=== PATIENT | female | born 1965 | race Two or more races ===

== ENCOUNTER → 2017-06-27 | Outpatient (CLI) | payer MEDICARE, MEDICAID ==
--- NOTE | 2017-06-27 14:17 | Diagnostic Imaging Report ---
Indication: Dyspnea Comparison: None 2 views of the chest obtained. Findings: Cardiomediastinal silhouette and pulmonary vascularity are within normal limits for age. The diaphragmatic contour is smooth and costophrenic angles are sharp. No pleural effusions are identified. The bones are unremarkable. Cervical fusion hardware noted. Impression: No acute disease
== END | disposition home or self-care (01) ==
LOC: RAD 13:13
DX: R05 Cough (principal)
CPT/HCPCS: 71020

== ENCOUNTER 2017-08-08 06:15 | Emergency (ER) | payer MEDICARE, MEDICAID ==
[~2017-08-08] VITALS: Ht 162.6 cm; Wt 98.4 kg
[2017-08-08] MEDS ORDERED: HYDROmorphone 1mg/ml Carpuject IVP ONE ×3 (07:15→11:00)
[2017-08-08] MEDS ORDERED: Ketorolac 30mg Inj IV ONE (07:15)
[2017-08-08] MEDS ORDERED: Tubing IV Cassette IV ONE ×2 (07:18→08:05)
--- NOTE | 2017-08-08 07:29 | Emergency Room Report ---
History of Present Illness General Chief Complaint: Headache Source: Patient Present Illness HPI This patient has a recent complications related to his spinal fusion. The patient underwent a lumbar spine fusion at [facility] in early July. She had postoperative complications to include a surgical site infection. She had to undergo revision of the surgical site and since that time has developed a spinal fluid leak at the level of the surgical site. She did get seen again at [facility] 4 days ago for these symptoms. She was diagnosed with a spinal fluid leak. There was attempt to do a patch with a blood patch. However this failed. She then underwent attempt at relief with a type of "spinal glue." She states that this did work for about one day. She states at about 2 AM this morning she woke up with a severe headache. She states the headache is worse when she stands up or sits up. She states that she stands or sits up she will immediately vomit. She states that her neck also hurts. She denies fever or chills. She has had nausea or vomiting. She denies cough or congestion. She denies chest pain or shortness of breath. She has no other complaints. Allergies: Coded Allergies: MORPHINE (Verified Allergy, Unknown, 08/08/17) Patient History Past Medical History: see triage record, other - Recent lumbar spinal fusion w / post operative complications and post surgical spinal leak. Past Surgical History: other - spinal fusion, surgical washout, post operative spinal leak (Jul and 2016) Social History: Denies: smoking, alcohol use, drug use Reviewed Nursing Documentation: PMH: Agreed, PSxH: Agreed Review of Systems All Other Systems: negative except mentioned in HPI Physical Exam Vital Signs Date Time Temp Pulse Resp B/P (MAP) Pulse Ox O2 Delivery O2 Flow Rate FiO2 08/08/17 06:17 99.1 111 20 144/87 99 Room Air Sp02 EP Interpretation: reviewed, normal General Appearance: no apparent distress, alert, GCS 15, non-toxic Head: normocephalic, atraumatic Eyes: bilateral eye normal inspection, bilateral eye PERRL ENT: hearing grossly normal, normal pharynx, no angioedema, normal voice Neck: supple/symm/no masses, limited range of motion - secondary to pain. Respiratory: chest non-tender, lungs clear, normal breath sounds, speaking full sentences Cardiovascular #1: regular rate, rhythm, no edema Gastrointestinal: normal bowel sounds, non tender, soft, non-distended, no guarding, no rebound Rectal: deferred Musculoskeletal: back normal, gait/station normal, normal range of motion, non- tender Neurologic: alert, oriented x3, responsive, motor strength/tone normal, sensory intact, speech normal Psychiatric: judgement/insight normal, memory normal, mood/affect normal, no suicidal/homicidal ideation Skin: normal color, no rash, warm/dry, well hydrated Medical Decision Making Diagnostic Impression: Primary Impression: Postoperative spinal headache Additional Impressions: Fever CSF leak ER Course Is patient has a fever and his post operative from spinal surgery. She also recently had a large CSF leak and had to undergo grafting for attempt at repair. Patient presents with uncontrolled an intractable headache. She is also found to be febrile which is concerning for a postoperative infection. She was given broad-spectrum antibiotics to include cefepime and vancomycin. She was also given IV fluids and acetaminophen. I discussed the case with the patient's spinal surgeon who accepted her for transfer to [facility]. She did undergo MRI of the thoracic and lumbar spine. There is an area at the postoperative site that appears to be a large collection of CSF. There is no obvious epidural abscess identified. She will need to undergo likely a CSF to drain and possibly further evaluation for postoperative infection. She is transferred for higher level of care. Laboratory Tests Test 08/08/17 07:11 08/08/17 08:45 White Blood Count 13.9 K/UL (4.8-10.8) H Red Blood Count 3.62 M/UL (4.20-5.40) L Hemoglobin 11.3 G/DL (12.0-16.0) L Hematocrit 31.7 % (37.0-47.0) L Mean Corpuscular Volume 88 FL (80-99) Mean Corpuscular Hemoglobin 31.3 PG (27.0-31.0) H Mean Corpuscular Hemoglobin Concent 35.7 G/DL (32.0-36.0) Red Cell Distribution Width 11.3 % (11.6-14.8) L Platelet Count 306 K/UL (150-450) Mean Platelet Volume 5.5 FL (6.5-10.1) L Neutrophils (%) (Auto) % (45.0-75.0) Lymphocytes (%) (Auto) % (20.0-45.0) Monocytes (%) (Auto) % (1.0-10.0) Eosinophils (%) (Auto) % (0.0-3.0) Basophils (%) (Auto) % (0.0-2.0) Differential Total Cells Counted 100 Neutrophils % (Manual) 89 % (45-75) H Lymphocytes % (Manual) 9 % (20-45) L Monocytes % (Manual) 1 % (1-10) Eosinophils % (Manual) 0 % (0-3) Basophils % (Manual) 0 % (0-2) Band Neutrophils 1 % (0-8) Platelet Estimate Adequate Platelet Morphology Normal Red Blood Cell Morphology Normal Sodium Level 139 MMOL/L (136-145) Potassium Level 3.0 MMOL/L (3.5-5.1) L Chloride Level 103 MMOL/L (98-107) Carbon Dioxide Level 23 MMOL/L (21-32) Anion Gap 13 mmol/L (5-15) Blood Urea Nitrogen 11 mg/dL (7-18) Creatinine 0.8 MG/DL (0.55-1.30) Estimate Glomerular Filtration Rate > 60 mL/min (>60) Glucose Level 207 MG/DL (74-106) H Lactic Acid Level 1.40 mmol/L (0.66-2.22) Calcium Level 9.6 MG/DL (8.5-10.1) Total Bilirubin 0.5 MG/DL (0.2-1.0) Aspartate Amino Transferase (AST) 28 U/L (15-37) Alanine Aminotransferase (ALT) 44 U/L (12-78) Alkaline Phosphatase 130 U/L (46-116) H Total Creatine Kinase 86 U/L (26-308) Creatine Kinase MB 0.6 NG/ML (0.0-3.6) Creatine Kinase MB Relative Index 0.6 Troponin I 0.000 ng/mL (0.000-0.056) Total Protein 8.4 G/DL (6.4-8.2) H Albumin 4.5 G/DL (3.4-5.0) Globulin 3.9 g/dL Albumin/Globulin Ratio 1.2 (1.0-2.7) Urine Color Pale yellow Urine Appearance Clear Urine pH 6.5 (4.5-8.0) Urine Specific [place] 1.020 (1.005-1.035) Urine Protein Negative (NEGATIVE) Urine Glucose (UA) Negative (NEGATIVE) Urine Ketones Negative (NEGATIVE) Urine Occult Blood 2+ (NEGATIVE) H Urine Nitrite Negative (NEGATIVE) Urine Bilirubin Negative (NEGATIVE) Urine Urobilinogen Normal MG/DL (0.0-1.0) Urine Leukocyte Esterase Negative (NEGATIVE) Urine RBC 2-4 /HPF (0 - 2) H Urine WBC 0-2 /HPF (0 - 2) Urine Squamous Epithelial Cells Few /LPF (NONE/OCC) Urine Amorphous Sediment Few /LPF (NONE) H Urine Bacteria Few /HPF (NONE) Urine Mucus Few /LPF (NONE/OCC) H EKG Diagnostic Results Rate: tachycardiac Rhythm: other ST Segments: no acute changes Other Impression S.tachycardia, NSST Rhythm Strip Diag. Results EP Interpretation: yes Rate: 110's Rhythm: no PVC's, no ectopy, other Other Impression S.tachycardia CT/MRI/US Diagnostic Results CT/MRI/US Diagnostic Results : Imaging Test Ordered: MRI Thoracic and Lumbar, CT head Impression CT head: Tiny nonspecific focus, possibly blood in the high right frontal lobe. This is most likely an incidental finding and may be dystrophic calcium. Followup and clinical correlation recommended. MRI T-spine/L-spine:Impression: Large posterior paraspinous fluid collection measuring 11 x 5 x 6 cm residing within the laminectomy bed of L2 and L3, posterior to the thecal sac and anterior to the muscular fascia. Finding is consistent with recent surgery and postsurgical CSF collection. Status post complete laminectomy at L2 and L3 and instrumented posterior fusion L2-L4. Status post right hemilaminotomy at L5. No evidence of cord or spinal nerve root compression. No evidence of epidural or paraspinous/paravertebral abscess. Last Vital Signs Date Time Temp Pulse Resp B/P (MAP) Pulse Ox O2 Delivery O2 Flow Rate FiO2 08/08/17 06:17 99.1 111 20 144/87 99 Room Air Disposition: XFER [facility] Condition: Serious BRIGITTE SHARMA D.O. Aug 08, 2017 07:29
[2017-08-08 07:40] LABS: HEMATOCRIT 31.7 % (37.0-47.0); HEMOGLOBIN 11.3 G/DL (12.0-16.0); MEAN CORPUSCULAR VOLUME 88 FL (80-99); PLATELET COUNT 306 K/UL (150-450); RED BLOOD COUNT 3.62 M/UL (4.20-5.40); RED CELL DISTRIBUTION WIDTH 11.3 % (11.6-14.8); WHITE BLOOD COUNT 13.9 K/UL (4.8-10.8)
[2017-08-08 07:45] VITALS: BP 127/90
[2017-08-08 07:55] LABS: ALANINE AMINOTRANSFERASE 44 U/L (12-78); ALBUMIN 4.5 G/DL (3.4-5.0); ALBUMIN/GLOBULIN RATIO 1.2 (1.0-2.7); ALKALINE PHOSPHATASE 130 U/L (46-116); ANION GAP 13 mmol/L (5-15); ASPARTATE AMINO TRANSFERASE 28 U/L (15-37); BILIRUBIN,TOTAL 0.5 MG/DL (0.2-1.0); BLOOD UREA NITROGEN 11 mg/dL (7-18); CALCIUM 9.6 MG/DL (8.5-10.1); CARBON DIOXIDE 23 MMOL/L (21-32); CHLORIDE 103 MMOL/L (98-107); CREATININE 0.8 MG/DL (0.55-1.30); SODIUM 139 MMOL/L (136-145)
[2017-08-08 07:56] LABS: CKMB 0.6 NG/ML (0.0-3.6); CREATINE KINASE 86 U/L (26-308)
[2017-08-08] MEDS ORDERED: Acetaminophen 500mg (ES) tab ORAL ONE (08:00)
[2017-08-08] MEDS ORDERED: Vancomycin 1.5gm/D5W 250ml 250 ML IVPB ONE (08:00)
[2017-08-08] MEDS ORDERED: Cefepime HCl 2 GM in D5W 110 ML IVPB ONE ×2 (08:00→08:15)
[2017-08-08] MEDS ORDERED: Cefepime 2gm ONE (08:04)
[2017-08-08] MEDS ORDERED: Cefepime HCl 2 GM in NS 110 ML IVPB ONE (08:30)
--- NOTE | 2017-08-08 08:54 | Diagnostic Imaging Report ---
Indication: Headache. Postoperative spinal headache Technique: Contiguous 5 mm thick transaxial imaging of the head obtained in a Siemens Sensation [address] scanner. Soft tissue and bone windows generated. Total Dose length Product (DLP): [address] Dose Index Volume (CTDIvol): 70.38, 0.15 mGy Comparison: none Findings: There is a 2 mm punctate focus of high attenuation steward-white junction right frontal lobe near the vertex. The finding is nonspecific. This could represent a focus of calcification. Unfortunately small hemorrhagic focus is in the differential diagnosis but is doubtful. There is no associated edema or mass effect. Followup is recommended. MR could be done and may or may not be more specific. The ventricles and basal cisterns are normal. There is a cavum septum pellucida. Osseous structures appear normal. There is no evidence of hydrocephalus. No abnormal extra-axial collection seen. Impression: Tiny nonspecific focus, possibly blood in the high right frontal lobe. This is most likely an incidental finding and may be dystrophic calcium. Followup and clinical correlation recommended. The CT scanner at [facility] is accredited by the [employer] and the scans are performed using dose optimization techniques as appropriate to a performed exam including Automatic Exposure control.
--- NOTE | 2017-08-08 08:54 | Diagnostic Imaging Report ---
Indication: Headache. Postoperative spinal headache Technique: Contiguous 5 mm thick transaxial imaging of the head obtained in a Siemens Sensation [address] scanner. Soft tissue and bone windows generated. Total Dose length Product (DLP): [address] Dose Index Volume (CTDIvol): 70.38, 0.15 mGy Comparison: none Findings: There is a 2 mm punctate focus of high attenuation steward-white junction right frontal lobe near the vertex. The finding is nonspecific. This could represent a focus of calcification. Unfortunately small hemorrhagic focus is in the differential diagnosis but is doubtful. There is no associated edema or mass effect. Followup is recommended. MR could be done and may or may not be more specific. The ventricles and basal cisterns are normal. There is a cavum septum pellucida. Osseous structures appear normal. There is no evidence of hydrocephalus. No abnormal extra-axial collection seen. Impression: Tiny nonspecific focus, possibly blood in the high right frontal lobe. This is most likely an incidental finding and may be dystrophic calcium. Followup and clinical correlation recommended. The CT scanner at [facility] is accredited by the [employer] and the scans are performed using dose optimization techniques as appropriate to a performed exam including Automatic Exposure control.
[2017-08-08 08:56] LABS: APPEARANCE,URINE CLEAR; BILIRUBIN, URINE NEGATIVE (NEGATIVE); COLOR,URINE PALE YELLOW; GLUCOSE, URINE (UA) NEGATIVE (NEGATIVE); KETONES,URINE NEGATIVE (NEGATIVE); LEUKOCYTE ESTERASE ,URINE NEGATIVE (NEGATIVE); NITRITE,URINE NEGATIVE (NEGATIVE); PH,URINE 6.5 (4.5-8.0); PROTEIN,URINE NEGATIVE (NEGATIVE); UROBILINOGEN,URINE NORMAL MG/DL (0.0-1.0)
[2017-08-08] MEDS ORDERED: ALPRAZolam 0.5mg tab ORAL ONE (09:00)
[2017-08-08] MEDS ORDERED: GABAPENTIN600 MG ORAL (09:29)
[2017-08-08] MEDS ORDERED: IBUPROFEN600 MG ORAL (09:29)
[2017-08-08 10:40] VITALS: BP 122/60
[2017-08-08] MEDS: KCl 10% 40mEq/30ml liquid ORAL ONE ×2 (11:00→11:13)
--- NOTE | 2017-08-08 11:57 | Diagnostic Imaging Report ---
Indication: History of recent lumbar surgery. Complicated by postoperative CSF leak and headache. Concern for infection. Technique: MRI examination of the Lumbar spine was performed in a 1.5 Michelle magnet. Sequences obtained include sagittal and axial T1 and T2 fast spin echo, and sagittal STIR. Pre/Post gadolinium axial and sagittal T1 FSE w/ fat saturation obtained. Comparison: none Findings: 3 level posterior instrumented fusion noted with pedicle screws and fusion rods and associated susceptibility. L2 on L3 complete bilateral laminectomy noted. Within the surgical bed of the laminectomy, moderate-sized fluid collection is demonstrated posterior to the thecal sac consistent with the given history of CSF leak. The collection is a fairly homogeneous and a similar to that of CSF in signal and is nonenhancing. Approximate measurements are 11 x 5 x 6 cm in craniocaudal, AP, transverse dimensions respectively. Below L3 the collection is midline to right paramidline residing posterior to the right lamina of L4 and L5. At L5 there is a right hemilaminotomy also noted. There is no compression of the thecal sac which appears capacious. There is no epidural collection of fluid or hematoma identified. The foramen are not evaluated well due to the susceptibility artifact from hardware. Bone marrow signal is grossly normal. Alignment of the lumbar spine is normal. The conus medullaris is seen at the lower end of T12. Visualized part of the distal cord is normal. MRI of the thoracic spine was also performed. No epidural collection, cord compression or spinal stenosis identified. Alignment of the thoracic spine is normal. Impression: Large posterior paraspinous fluid collection measuring 11 x 5 x 6 cm residing within the laminectomy bed of L2 and L3, posterior to the thecal sac and anterior to the muscular fascia. Finding is consistent with recent surgery and postsurgical CSF collection. Status post complete laminectomy at L2 and L3 and instrumented posterior fusion L2-L4. Status post right hemilaminotomy at L5. No evidence of cord or spinal nerve root compression. No evidence of epidural or paraspinous/paravertebral abscess.
--- NOTE | 2017-08-08 11:58 | Diagnostic Imaging Report ---
The study is incorporated into the MRI lumbar spine report.
--- NOTE | 2017-08-08 11:58 | Diagnostic Imaging Report ---
The study is incorporated into the MRI lumbar spine report.
--- NOTE | 2017-08-08 11:58 | Diagnostic Imaging Report ---
The study is incorporated into the MRI lumbar spine report.
[2017-08-08 12:30] VITALS: BP 117/60
[2017-08-08] MEDS ORDERED: DILAUDID8 MG PO (12:43)
[2017-08-08] MEDS ORDERED: NUCYNTA ER150 MG PO (12:43)
[2017-08-08 13:54] VITALS: BP 117/60
== END 2017-08-08 14:05 | disposition short-term general hospital (02) ==
LOC: EMR 07:21
DX: G89.18 Other acute postprocedural pain (principal); R51 Headache; Z88.5 Allergy status to narcotic agent; Z98.1 Arthrodesis status
CPT/HCPCS: 36415; 70450; 72146; 72158; 80053; 81003; 82550; 82553; 83605; 84484; 85007; 85025; 86140; 87040; 96361; 96365; 96366; 96375; 96376; 99285; A9585; J1170; J1885; J2405; J3370; J8499